=== PATIENT | male | born 1955 | race Caucasian/White ===

== ENCOUNTER → 2017-08-25 18:06 | Outpatient (CLI) | payer BC, SELFPAY ==
--- NOTE | 2017-08-25 | IMM_PTH ---
PATIENT: BASSEM EVANS LOC: [facility] U#:[id number] AGE/SX: 70/M ROOM: RE08/25/[address]: Dr. Rohit Estrada MD : 1955 BED: DIS: SPEC #: [id number] RECD: 08/27/17 11:25 STATUS: CHASEShe REQ #: [id number] JANNETH: 08/25/17 00:[address]: Rohit Estrada DEPT: IMMUNOHISTOCHEMISTRY RECD BY: Radha Bueno ENTERED: 08/27/17 11:26 SP TYPE: IMMUNO OTHR DR: Dr. Eric Rosas MD Tissues: D - PROSTATE LEFT Procedures: P40 (add) 34BE12 (initial) PHYSICIAN & INSTITUTION [place] [id number] SPECIMEN INFORMATION: Tissue Source: D - Left prostate, apex, core biopsy Clinical Info: Elevated PSA Specimen Number: [id number] CPT code: 33338, 42885 METHODOLOGY: Deparaffinized sections of prefer/formalin-fixed tissue or PAP/DQ stained slides are incubated with monoclonal/polyclonal antibodies/oligonucleotide probes. Localization is made via biotin free immunoperoxidase method. Appropriate controls are performed and reacted as expected. Results on target cell population are indicated in the following table: RESULTS: ANTIBODY / CLONE RESULT Block D P40 (BC28) negative 34BE12 (34BE12) negative These tests were developed and their performance characteristics determined by [facility]. They may not have been cleared or approved by the U.S. Food and Drug Administration. The FDA has determined that such clearance or approval is not necessary. INTERPRETATION: D. Left prostate, apex, core biopsy: Adenocarcinoma. SJ:ben 08/28/17
--- NOTE | 2017-08-25 15:30 | PROSBIL_PTH ---
PATIENT: BASSEM EVANS LOC: [facility] U#:[id number] AGE/SX: 70/M ROOM: RE08/25/[address]: Dr. Rohit Estrada MD : 1955 BED: DIS: SPEC #: [id number] RECD: 08/25/17 18:09 STATUS: ZORAN NAHEED #: [id number] JANNETH: 08/25/17 15:[address]: Rohit Estrada DEPT: SURGICAL PATHOLOGY RECD BY: Travis Beard ENTERED: 08/26/17 12:08 SP TYPE: PROST BX CÉSAR DR: Dr. Eric Rosas MD Tissues: A - PROSTATE RIGHT B - PROSTATE RIGHT C - PROSTATE RIGHT D - PROSTATE LEFT E - PROSTATE LEFT F - PROSTATE LEFT Procedures: PROSTATE BX HEADER OPERATION: Prostate biopsy PRE-OP DIAGNOSIS: Elevated PSA TISSUE SUBMITTED: A - Right apex, B - Right mid, C - Right base, D - Left apex, E - Left mid, F - Left base MICROSCOPIC DIAGNOSIS A. Right prostate, apex, core biopsy: Prostatic tissue, negative for malignancy. Focal mild chronic inflammation. B. Right prostate, mid, core biopsy: Prostatic tissue, negative for malignancy. C. Right prostate, base, core biopsy: Focal high-grade prostatic intraepithelial neoplasia (HGPIN). D. Left prostate, apex, core biopsy: Prostatic adenocarcinoma: [place] grade: 3+4=7 Number of cores involved: 2 out of 2 Proportion of tissue involved: ~20% Perineural invasion: Present Greatest tumor length: 0.3 cm E. Left prostate, mid, core biopsy: Prostatic adenocarcinoma: [place] grade: 3+4=7 Number of cores involved: 2 out of 2 Proportion of tissue involved: ~60% Perineural invasion: Present Greatest tumor length: 0.7 cm F. Left prostate, base, core biopsy: Prostatic adenocarcinoma: [place] grade: 4+3=7 Number of cores involved: 2 out of 2 Proportion of tissue involved: ~70% Perineural invasion: Present Greatest tumor length: 0.9 cm NATALEE:ben 08/27/17 COMMENT D. Immunohistochemistry ([id number]) supports the above diagnosis. Case has been reviewed in consultation with Dr. Rasheed who concurs with the above diagnosis. IDC:AM MICROSCOPIC DESCRIPTION Slides are reviewed. GROSS DESCRIPTION A - Received is one container designated prostate, right apex. The specimen consists of three elongated fragments of light delgado-white soft tissue measuring 0.3 to 1.2 cm in length and 0.1 cm in diameter. The specimen is totally submitted in one cassette. B - Received is one container designated prostate, right mid. The specimen consists of two elongated fragments of light delgado-white soft tissue measuring 0.5 and 1.2 cm in length and 0.1 cm in diameter. The specimen is totally submitted in one cassette. C - Received is one container designated prostate, right base. The specimen consists of two elongated fragments of light delgado-white soft tissue each measuring 1 cm in length and 0.1 cm in diameter. The specimen is totally submitted in one cassette. D - Received is one container designated prostate, left apex. The specimen consists of two elongated fragments of light delgado-white soft tissue each measuring 1 cm in length and 0.1 cm in diameter. The specimen is totally submitted in one cassette. E - Received is one container designated prostate, left mid. The specimen consists of two elongated fragments of light delgado-white soft tissue each measuring 1.2 cm in length and 0.1 cm in diameter. The specimen is totally submitted in one cassette. F - Received is one container designated prostate, left base. The specimen consists of two elongated fragments of light delgado-white soft tissue each measuring 1.4 cm in length and 0.1 cm in diameter. The specimen is totally submitted in one cassette. / NATALEE:ben 08/26/17 TC:0 [facility]: [id number] x6
== END ==
PROVIDERS: Family Provider Family Medicine; PCP Family Medicine; Visit Provider Urology
DX: R97.20 Elevated prostate specific antigen [PSA] (principal)
CPT/HCPCS: 88305; 88341; 88342; G0416

== ENCOUNTER → 2017-09-09 10:05 | Outpatient (CLI) | payer BC, SELFPAY ==
--- NOTE | 2017-09-09 10:09 | NM_ITS ---
CLINICAL: 62-year-old male with reported history of carcinoma of the prostate. WHOLE BODY 99m Tc MDP RADIONUCLIDE BONE SCINTIGRAPHY COMPARISON: CT of the abdomen-pelvis report 09/09/2017 FINDINGS: Following the intravenous administration of 25.5 mCi of 99m Tc MDP, whole body bone images reveal: 1. Increased radiopharmaceutical concentration is identified in the acromioclavicular and sternoclavicular compartments of both shoulders, fifth lumbar vertebra posteriorly on the left and right, left sacroiliac joint, bilateral wrists and hands, the patellofemoral compartments of both knees, the right hip involving the superior acetabulum. 2. Asymmetric increased uptake is noted in the left posterior ischium. 3. The remaining skeletal structures are scintigraphically unremarkable with normal-appearing renal images and urinary bladder activity identified. Increase in uptake is defined in the inter-orbital aspect of the calvarium most consistent with periostitis. NM/Bone Scan Whole Body IMPRESSION: 1. The increased radiopharmaceutical concentration identified in the bilateral shoulders, fifth lumbar vertebra, left sacroiliac joint, bilateral wrist articulations, right-left hands, knees bilaterally, the right hip is most consistent with degenerative arthritis. 2. Facilitated tracer concentration noted in the left posterior ischium is most consistent with periostitis. Plain film radiography correlation may be of benefit in the setting of known prostate carcinoma. Electronically Signed: Ralph Garcia DO at 11:38 EST Tel , Service support ,
--- NOTE | 2017-09-09 13:50 | CT_ITS ---
STUDY: CT ABDOMEN AND PELVIS WITH CONTRAST REASON FOR EXAM: Male, 62 years old. Prostate cancer. Study performed for staging RADIATION DOSAGE (If Supplied By Facility): CTDIvol = ( 16.78 ) mGy, DLP = ( 1319.30 ) mGycm TECHNIQUE: Transaxial images were obtained from the dome of the diaphragm to the symphysis pubis without oral contrast. 100CC ml of Isovue 300 contrast was administered. Sagittal and coronal images were reconstructed. Individualized dose optimization techniques were used for this CT. COMPARISON: April 29, 2017 8 years. . FINDINGS: The visualized lung bases are unremarkable. The visualized portions of the heart are within normal limits. Normal liver. Normal gallbladder and extrahepatic biliary system. Normal spleen. Normal pancreas. Normal bilateral adrenal glands. Bilateral renal cysts are noted largest is in the right kidney measures 7.7 x 7.0 cm is stable since the previous study it contains a linear calcification and is consistent with benign cyst. Normal visualized stomach. Normal small intestine. Normal colon. The appendix is visualized and appears normal. Normal abdominal aorta. Normal inferior vena cava. Normal retroperitoneum. Normal urinary bladder. Normal abdominal wall. There are diffuse degenerative changes of the visualized lumbar spine. CT/Abdomen/Pelvis WITH Contrast IMPRESSION: Cholelithiasis. Bilateral renal cysts are noted largest is in the right kidney measures 7.7 x 7.0 cm is stable since the previous study it contains a linear calcification and is consistent with benign cyst. There is no evidence of metastatic lesions in the abdomen or the pelvis. Electronically Signed: Marti Ramírez MD at 7:12 EST Tel , Service support ,
== END ==
PROVIDERS: Family Provider Family Medicine; PCP Family Medicine; Visit Provider Urology
DX: C61 Malignant neoplasm of prostate (principal)
CPT/HCPCS: 74177; 78306; Q9967

== ENCOUNTER → 2017-10-23 13:17 | Outpatient (CLI) | payer BC, SELFPAY ==
[2017-10-22 15:52] LABS: Absolute Lymphocyte Count 1.73 X10^3/ul (0.83-4.51); Absolute Neutrophil Count 3.6 X10^3/uL (2.0-7.7); Basophil# 0.02 X10^3/uL; Basophil% 0.3 % (0-1); Eosinophil# 0.29 X10^3/uL; Eosinophils% 4.5 % (0-5); Hematocrit 43.4 % (40-54); Hemoglobin 14.8 g/dl (13.0-16.5); Lymphocyte # 1.73 X10^3/ul (4.0); Lymphocyte % 27.1 % (19-41); Mean Corp Hgb Conc 34.1 g/gl (32-36); Mean Corpuscular Hgb 29.2 pg (27.0-32.0); Mean Corpuscular Volume 85.6 fL (80-94); Mean Platelet Vol. 10.7 fl (6.2-12.0); Monocyte# 0.79 X10^3/uL; Monocyte% 12.4 % (0-10); Neutrophil # 3.55 X10^3/uL (2.7-7.7); Neutrophil % 55.5 % (47-70); Platelet Count 191 K/mm3 (150-450); RBC Distribution Width CV 12.7 % (11.6-14.6); RBC Distribution Width SD 39.3 fl (35.1-43.9); Red Blood Count 5.07 M/mm3 (4.6-6.2); White Blood Count 6.4 K/mm3 (4.4-11.0)
[2017-10-22 15:54] LABS: POSITIVE COUNT NO; POSITIVE DIFFERENTIAL NO; POSITIVE MORPHOLOGY NO
[2017-10-22 16:24] LABS: Creatinine, Serum 1.05 mg/dL (0.70-1.30); EST Glomerular Filtration Rate 76 mL/min (>60); Est Glom Filt Rate - Afr Amer 92 mL/min (>60); PSA,Total- Diagnostic 1.87 ng/mL (0.0-4.0)
--- NOTE | 2017-10-23 13:19 | CT_ITS ---
STUDY: CT PELVIS WITH CONTRAST REASON FOR EXAM: Male, 62 years old. Prostate carcinoma. Radiation therapy planning. RADIATION DOSAGE (If Supplied By Facility): CTDIvol = ( 24.62 ) mGy, DLP = ( 887.24 ) mGycm TECHNIQUE: Transaxial imaging of the pelvis was performed without oral contrast. 100CC ml of Isovue 300 contrast was administered intravenously. No sagittal/coronal reconstructions provided. Radiation therapy technique. Individualized dose optimization techniques were used for this CT. COMPARISON: No prior CT pelvis with radiation therapy technique imaging available. Correlation CT abdomen/pelvis 09/09/2017. FINDINGS: Incompletely seen round smooth margin low-attenuation lesion is seen in the right lower quadrant of the abdomen posteriorly, consistent with a renal cyst, seen with prior CT study 09/09/2017 which measures up to 7.6 cm diameter with central Hounsfield units 10.1 consistent with a simple cyst. Normal urinary bladder noted, nearly completely filled with IV contrast. No dilatation visualized distal ureter is noted. Seminal vesicles appear symmetric and within normal limits in size. Prostate is approximate in 4.3 x 3.9 cm and mildly indents the posterior inferior bladder in the midline and is partially secured by metal artifact from fiduciary markers. Normal visualized small intestine. Normal visualized colon. The appendix is identified and shows normal caliber without thickening. There is no pelvic fluid. There is no pelvic lymphadenopathy or mass lesion identified. Iodinated contrast moderately dilates the penile urethra especially at the base. 3 gold fiduciary markers are noted within the prostate for radiation therapy planning. Normal visualized pelvic arteries. Moderate calcified distal abdominal aorta and distal branches noted. Normal abdominal wall without ventral/adrenal hernia noted. Visualized soft tissues show small lipoma anterior to the right proximal femur approximate 2.0 x 4.0 cm. No change visualized osseous structures without finding of lytic/blastic lesion noted. Mild metal artifact noted from penile clamp. No filling defect within the penile urethra identified. CT/CT Pelvis W/CONT Therapy IMPRESSION: CT pelvis for radiation therapy planning of prostate carcinoma as described. No CT finding of prostate osseous metastasis is identified. Electronically Signed: Price Poli, at 8:09 EDT Tel , Service support ,
== END ==
PROVIDERS: Family Provider Family Medicine; PCP Family Medicine; Visit Provider Radiology Radiation Oncology
DX: Z01.818 Encounter for other preprocedural examination (principal); C61 Malignant neoplasm of prostate
CPT/HCPCS: 36415; 51600; 72193; 82565; 84153; 85025; Q9967

== ENCOUNTER → 2017-11-03 16:02 | Outpatient (CLI) | payer BC, SELFPAY ==
--- NOTE | 2017-11-03 16:10 | US_ITS ---
STUDY: SCROTUM ULTRASOUND REASON FOR EXAM: Male, 62 years old. Right testicular mass and swelling. Patient is on antibiotics and says that the lump has gone down. TECHNIQUE: Ultrasound evaluation of the scrotum was performed with color Doppler and static davenport-scale imaging. COMPARISON: None. FINDINGS: RIGHT TESTICLE INTRATESTICULAR: There is a normal size of the right testicle. The right testicle measures 2.8 x 2.2 x 1.5 cm. There is a homogenous echotexture. There is normal arterial and normal venous vascularity. There is no demonstrated right testicular mass or cyst. EXTRATESTICULAR: The epididymal head is normal in size. The epididymis head measures 0.6 cm. There is thickening and heterogeneity of the epididymal tail, which corresponds with the area of palpable lump. There is normal vascularity of the epididymis. There is no demonstrated epididymal cystic structure. There is no demonstrated hydrocele. There is no demonstrated varicocele. There is no demonstrated extratesticular mass or cyst. LEFT TESTICLE INTRATESTICULAR: There is a normal size of the left testicle. The left testicle measures 2.6 x 2.0 x 1.4 cm. There are a small number of microcalcifications in the left testicle. Otherwise there is a homogenous echotexture. There is normal arterial and normal venous vascularity. There is no demonstrated left testicular mass or cyst. EXTRATESTICULAR: The epididymis is normal in size. The epididymis head measures 0.5 cm. There is normal vascularity of the epididymis. There is no demonstrated epididymal cystic structure. There is no demonstrated hydrocele. There is no demonstrated varicocele. There is no demonstrated extratesticular mass or cyst. US/Testicular with Arterial Flow IMPRESSION: Mild microlithiasis of the left testicle. Otherwise, normal testes with no evidence for mass, torsion, or hyperemia. Thickening and heterogeneity of the right epididymal tail may represent epididymitis. Electronically Signed: Michael Castillo MD at 5:21 EDT , Service support ,
== END ==
PROVIDERS: Family Provider Family Medicine; PCP Family Medicine; Visit Provider Urology
DX: N50.9 Disorder of male genital organs, unspecified (principal)
CPT/HCPCS: 76870; 93976

== ENCOUNTER → 2017-11-25 16:30 | Outpatient (CLI) | payer BC, SELFPAY ==
[2017-11-25 17:25] LABS: Absolute Neutrophil Count 2.9 X10^3/uL (2.0-7.7); Basophil# 0.02 X10^3/uL; Basophil% 0.4 % (0-1); Eosinophil# 0.23 X10^3/uL; Hematocrit 39.8 % (40-54); Hemoglobin 13.6 g/dl (13.0-16.5); Lymphocyte % 15.3 % (19-41); Mean Corp Hgb Conc 34.2 g/gl (32-36); Mean Corpuscular Hgb 29.2 pg (27.0-32.0); Mean Corpuscular Volume 85.6 fL (80-94); Mean Platelet Vol. 10.4 fl (6.2-12.0); Monocyte# 0.71 X10^3/uL; Monocyte% 15.5 % (0-10); Neutrophil # 2.92 X10^3/uL (2.7-7.7); Neutrophil % 63.6 % (47-70); Platelet Count 138 K/mm3 (150-450); RBC Distribution Width CV 12.8 % (11.6-14.6); RBC Distribution Width SD 38.6 fl (35.1-43.9); Red Blood Count 4.65 M/mm3 (4.6-6.2); White Blood Count 4.6 K/mm3 (4.4-11.0)
[2017-11-25 17:49] LABS: POSITIVE COUNT NO; POSITIVE DIFFERENTIAL NO; POSITIVE MORPHOLOGY NO
== END ==
PROVIDERS: Family Provider Family Medicine; PCP Family Medicine; Visit Provider Radiology Radiation Oncology
DX: C61 Malignant neoplasm of prostate (principal)
CPT/HCPCS: 36415; 85025

== ENCOUNTER → 2017-12-15 16:22 | Outpatient (CLI) | payer BC, SELFPAY ==
[2017-12-15 17:14] LABS: Absolute Lymphocyte Count 1.03 X10^3/ul (0.83-4.51); Absolute Neutrophil Count 2.5 X10^3/uL (2.0-7.7); Basophil# 0.02 X10^3/uL; Basophil% 0.5 % (0-1); Eosinophil# 0.29 X10^3/uL; Eosinophils% 6.7 % (0-5); Lymphocyte # 1.03 X10^3/ul (4.0); Mean Corp Hgb Conc 33.3 g/gl (32-36); Mean Corpuscular Hgb 28.8 pg (27.0-32.0); Mean Corpuscular Volume 86.3 fL (80-94); Mean Platelet Vol. 9.9 fl (6.2-12.0); Monocyte# 0.43 X10^3/uL; Neutrophil # 2.52 X10^3/uL (2.7-7.7); Neutrophil % 58.6 % (47-70); POSITIVE COUNT NO; POSITIVE DIFFERENTIAL NO; POSITIVE MORPHOLOGY NO; Platelet Count 148 K/mm3 (150-450); RBC Distribution Width SD 43.7 fl (35.1-43.9); Red Blood Count 4.52 M/mm3 (4.6-6.2); White Blood Count 4.3 K/mm3 (4.4-11.0)
== END ==
PROVIDERS: Family Provider Family Medicine; PCP Family Medicine; Visit Provider Radiology Radiation Oncology
DX: C61 Malignant neoplasm of prostate (principal)
CPT/HCPCS: 36415; 85025

== ENCOUNTER → 2018-06-16 11:41 | Outpatient (CLI) | payer BC, SELFPAY ==
[2018-06-16 13:20] LABS: PSA,Total- Diagnostic < 0.01 ng/mL (0.0-4.0)
== END ==
PROVIDERS: Family Provider Family Medicine; PCP Family Medicine; Referring Provider Urology; Visit Provider Urology
DX: C61 Malignant neoplasm of prostate (principal)
CPT/HCPCS: 36415; 84153

== ENCOUNTER → 2018-11-02 | Outpatient (CLI) | payer BC, SELFPAY ==
[2018-04-09 15:52] VITALS: BMI 34.7
--- NOTE | 2018-11-02 | CYSPIN_PTH ---
PATIENT: BASSEM EVANS LOC: [facility] U#:[id number] AGE/SX: 63/M ROOM: RE11/02/[address]: Dr. Rohit Estrada MD : 1955 BED: DIS: 11/02/2018 SPEC #: [id number] RECD: 11/03/18 11:26 STATUS: ZORAN REGlendy #: [id number] JANNETH: 11/02/18 00:[address]: Rohit Estrada DEPT: CYTOLOGY RECD BY: Sharad Weiner ENTERED: 11/03/18 11:26 SP TYPE: CYSPIN FL OTHR DR: Dr. Eric Rosas MD Tissues: Urine Procedures: Pap Stain (control) Special Stain Group II Cytospin Fluid HEADER OPERATION: Not noted PRE-OP DIAGNOSIS: Hematuria TISSUE SUBMITTED: Urine for cytology DIAGNOSIS CYTOLOGY Urine for cytology (cytospin): A few atypical urothelial cells noted, suspicious for malignancy. Bloody specimen. SJ:ben 11/04/18 COMMENT Clinical correlation and appropriate follow up are necessary. Case has been reviewed in consultation with Dr. Rasheed who concurs with the above diagnosis. IDC:AM CYTOLOGY STUDY Slides are reviewed. CYTOLOGY GROSS Received is 35 ml of cloudy red fluid labeled with the patient's name and and designated per the requisition as urine. Submitted for cytology preparation. / 11/03/18 TC:5 CPT: 63984
[2018-11-02 17:13] LABS: Cytology, Body Fluid / CSF SEE PATHOLOGY REPORT
== END | disposition home or self-care (01) ==
LOC: LABSPEC 16:59
PROVIDERS: Family Provider Family Medicine; PCP Family Medicine; Referring Provider Urology; Visit Provider Urology
DX: R31.9 Hematuria, unspecified (principal)
CPT/HCPCS: 88108; 88313

== ENCOUNTER → 2018-11-09 16:45 | Outpatient (CLI) | payer BC, SELFPAY ==
[2018-04-09 15:52] VITALS: BMI 34.7
--- NOTE | 2018-11-09 16:52 | CT_ITS ---
STUDY: CT ABDOMEN AND PELVIS WITHOUT CONTRAST REASON FOR EXAM: Male, 63 years old. Hematuria times one day RADIATION DOSAGE (If Supplied By Facility): CTDIvol = ( 18.74 ) mGy, DLP = ( 959.68 ) mGycm TECHNIQUE: Transaxial images were obtained from the dome of the diaphragm to the symphysis pubis without oral contrast, and without intravenous contrast. Sagittal and coronal images were reconstructed. Individualized dose optimization techniques were used for this CT. COMPARISON: 09/09/17 FINDINGS: The visualized lung bases are unremarkable. The visualized portions of the heart are within normal limits. There is decreased attenuation of the liver consistent with steatosis. There are multiple gallstones. Normal spleen. Normal pancreas. Normal bilateral adrenal glands. No obstructive uropathy, simple cysts are noted in both kidneys. Lower pole cyst in the right kidney measures 7 cm. Normal visualized stomach. Normal small intestine. Normal colon. The appendix is visualized and appears normal. Appendix best seen on coronal recon image 51. There is diffuse atherosclerotic calcification of the abdominal aorta, without a demonstrated aneurysm. Normal inferior vena cava. Normal retroperitoneum. Normal urinary bladder. Surgical clips noted around the prostate. Normal abdominal wall. There are diffuse degenerative changes of the visualized lumbar spine, and pelvis. CT/Abdomen/Pelvis without Cont IMPRESSION: No obstructive uropathy, stable bilateral renal cysts Bladder distends normally without evidence of filling defect, surgical clips noted around the prostate. Fatty liver Cholelithiasis, no sonographic evidence of acute cholecystitis Normal appendix visualized Degenerative bony changes Electronically Signed: Juni Culp MD at 19:18 EDT , Service support ,
== END ==
PROVIDERS: Family Provider Family Medicine; PCP Family Medicine; Referring Provider Urology; Visit Provider Urology
DX: R31.0 Gross hematuria (principal); Z85.46 Personal history of malignant neoplasm of prostate; Z87.442 Personal history of urinary calculi
CPT/HCPCS: 74176

== ENCOUNTER → 2019-04-28 08:31 | Outpatient (CLI) | payer BC, SELFPAY ==
[2019-04-13 13:50] VITALS: BMI 34.7
[2019-04-28 10:06] LABS: AST(SGOT) 19 U/L (15-37); Alanine Aminotransfer ALT/SGPT 39 U/L (16-61); Albumin, Serum 3.6 g/dL (3.2-5.0); Alkaline Phosphatase 55 U/L (45-117); Bilirubin, Direct 0.21 mg/dL (0.00-0.30); Cholesterol 129 mg/dL (200); Globulin 3.5 g/dL (2.2-4.2); High Density Lipoprotein 44 mg/dL; PSA,Total- Diagnostic 0.19 ng/mL (0.0-4.0); Protein, Total 7.1 g/dL (6.4-8.2); Triglycerides 146 mg/dL; Very Low Density Lipoprotein 29 mg/dL (5-40)
== END ==
PROVIDERS: Internal Medicine Cardiovascular Disease; Family Provider Family Medicine; PCP Family Medicine; Referring Provider Urology; Visit Provider Urology
DX: E78.5 Hyperlipidemia, unspecified (principal); C61 Malignant neoplasm of prostate
CPT/HCPCS: 36415; 80061; 80076; 84153

== ENCOUNTER → 2020-01-10 11:36 | Outpatient (CLI) | payer BC, SELFPAY ==
[2020-01-10 13:02] LABS: PSA,Total- Diagnostic 0.19 ng/mL (0.0-4.0)
== END ==
PROVIDERS: Referring Provider Urology; Visit Provider Urology
DX: C61 Malignant neoplasm of prostate (principal)
CPT/HCPCS: 36415; 84153

== ENCOUNTER → 2020-07-05 09:24 | Outpatient (CLI) | payer BC, SELFPAY ==
[2019-04-13 13:50] VITALS: BMI 34.7
[2020-07-05 10:53] LABS: PSA,Total- Diagnostic 0.29 ng/mL (0.0-4.0)
== END ==
PROVIDERS: Referring Provider Urology; Visit Provider Urology
DX: C61 Malignant neoplasm of prostate (principal)
CPT/HCPCS: 36415; 84153

== ENCOUNTER → 2020-07-14 15:21 | Outpatient (CLI) | payer BC, SELFPAY ==
[2020-07-14 11:45] VITALS: BMI 33.7
== END ==
PROVIDERS: Visit Provider Physician Assistant Surgical
DX: R68.89 Other general symptoms and signs (principal)
CPT/HCPCS: 87635; U0003

== ENCOUNTER 2020-07-21 06:21 | Emergency (ER) | payer BC, SELFPAY ==
[2020-07-14 11:45] VITALS: BMI 33.7
[2020-07-21 06:22] VITALS: BP 194/74; PULSE 57; RESP 18; TEMP 35.7; O2SAT 100; BMI 34.4
--- NOTE | 2020-07-21 06:31 | CT_ITS ---
STUDY: CT ABDOMEN AND PELVIS WITHOUT CONTRAST REASON FOR EXAM: Male, 65 years old. LEFT FLANK PAIN, HX PROSTATE CANCER RADIATION DOSAGE (If Supplied By Facility): CTDIvol = ( 16.72 ) mGy, DLP = ( 1019.29 ) mGycm TECHNIQUE: Transaxial 2.5 mm images were obtained from the dome of the diaphragm to the symphysis pubis without oral contrast, and without intravenous contrast. Sagittal and coronal images were reconstructed. This examination is limited for the evaluation of gastrointestinal, solid organs and vascular structures due to the lack of intravenous and oral contrast. Individualized dose optimization techniques were used for this CT. COMPARISON: CT abdomen and pelvis 11/09/2018. 09/09/2017. CT pelvis 10/23/2017. FINDINGS: The visualized lung bases are unremarkable. There is coronary artery calcification. There is stable decreased attenuation of the liver consistent with steatosis. There are stable multiple gallstones. Normal spleen. Normal pancreas. Normal bilateral adrenal glands. There is no right obstructive uropathy, right renal or ureteral calculi. There is left periureteral stranding and a punctate calculus at the left UVJ. There is minimal left hydronephrosis. There are bilateral stable renal cysts, largest in the inferior renal pole measures 8 cm, previously 7.8 cm, stable incompletely calcified septation. Normal visualized stomach. Normal small intestine. Normal colon. The appendix is visualized and appears normal. There is stable atherosclerosis of the abdominal aorta, greater branches and pelvic arteries without aneurysm or leak. Normal inferior vena cava. Normal retroperitoneum. Normal urinary bladder. There are stable prostatic metallic clips. There is a stable right-sided inguinal hernia containing adipose tissue. There are stable diffuse degenerative changes of the visualized lumbar spine. CT/Abdomen/Pelvis without Cont IMPRESSION: Punctate calculus at the left UVJ with periureteral stranding, minimal left hydronephrosis. Bilateral stable renal cysts, hepatic steatosis, cholelithiasis, arteriosclerosis, degenerative changes, postsurgical changes of the prostate. Electronically Signed: Diane Jackson MD at 7:36 EST , Service support ,
--- NOTE | 2020-07-21 06:31 | ED.VIS.GI ---
History of Present Illness Chief Complaint: Flank Pain Informant: Patient - Abdominal Pain/Flank Pain Onset: Hours - 6 Context: Sudden Onset Timing: Continuous, Waxes and wanes Quality: Aching Location: Left Flank - in back; no abd pain Current Severity: 8/10 Maximum Severity: 10/10 Worsened by: Nothing Relieved by: Nothing - Nausea/Vomiting/Emesis GI Symptom: Negative for: Nausea, Vomiting - Diarrhea/Melena/Hematochezia GI Symptom: Negative for: Diarrhea, Melena, Hematochezia Associated Symptoms: Negative for: Dysuria, Frequency, Hematuria, Urgency Narrative: Sudden onset left flank pain has not radiated around to his groin or anywhere else. Feels similar to a kidney stone he had in the past, he only had 1 and he passed it and did not require any procedures or surgery to do so. He had prostate cancer and surgery for that but no other abdominal surgeries. No LOC or presyncopal sx today. No known hx of AAA. Prior similar symptoms: Yes - With prior kidney stone remotely Recent Illness/Hospitalization: No - Past Medical History (1) History of prostate cancer Status: Resolved (2) Atherosclerosis of coronary artery of [place] heart with angina pectoris Status: Chronic Comment: PCI-JUSTYN-Mid RCA w/ 4.0 x 23 mm Promus 11/2009 (3) Essential (primary) hypertension Status: Chronic (4) HLD (hyperlipidemia) Status: Chronic (5) History of coronary artery stent placement Status: Resolved Comment: PCI-JUSTYN-Mid RCA w/ 4.0 x 23 mm Promus 11/2009 Past Medical History - Allergies and Home Meds Allergies/Adverse Reactions: Allergies anxiety med Allergy (Uncoded 07/14/20 11:47) Unknown Primary Care Physician: Rohit Estrada MD [STAFF PHYSICIAN] - 1 Week if not improving Doctors: Natalie - Urology Surgical History: - - prostate Smoking Status: Former smoker Review of Systems General: Denies: Chills, Fever, Sweats Eyes: Denies: Visual changes - bilaterally, Diplopia ENT: Denies: Rhinorrhea, Sore throat Cardiovascular: Denies: Chest pain, Palpitations Respiratory: Denies: Dyspnea, Cough, Dyspnea on exertion Gastrointestinal: Denies: Abdominal pain, Nausea, Vomiting, Diarrhea, Melena, Hematochezia Genitourinary: Denies: Dysuria, Hematuria, Frequency Musculoskeletal: Reports: Back pain. Denies: Myalgias, Extremity Pain Skin: Denies: Rash, Wounds Neurological: Denies: Headache, Weakness, Numbness Physical Exam Vital Signs/Narrative: Vital Signs Temp Pulse Resp BP Pulse Ox 07/21/20 06:22 96.2 F L 57 L 18 194/74 H 100 Inital Vital Signs reviewed: Yes General: Well nourished, Well developed, Obese, No Acute Distress Head: Normocephalic, Atraumatic Eyes: Perrl, EOMI ENT: Moist mucous membranes, No rhinorrhea Neck: Supple, Nontender Cardiovascular: Regular rate, Regular rhythm, No murmurs Respiratory: No distress, CTA bilaterally, Chest nontender Abdomen: Soft, Nontender, Nondistended, Normal bowel sounds. Negative for: Pulsatile mass Back: Normal Inspection, CVA tenderness - left only Extremities: Nontender, No edema Skin: Normal color, No rash, No Trauma Neurological: Alert, Oriented x3, Cranial nerves II-XII grossly intact, Normal Strength, Normal Sensation, Normal Gait Psychological: Normal affect, Normal Mood Diagnostic/Tx/Re-eval - Medical Decision Making Kidney stone suspected, given his age, one must consider AAA rupture. Urinalysis pending. CT obtained, official report is pending but it does not appear to show a AAA. It does, rather, show what appears to be a punctate left UVJ stone with mild hydro-, consistent with a kidney stone causing his symptoms. He was given morphine and Zofran IV for his symptoms, which were significantly improved. Anticipate discharge home with expectant management if urine shows no infection, prescription for analgesics, and urologic follow-up if he does not pass the stone within a week or so but is able to control his symptoms. We discussed reasons to return. ED Disposition - Plan for ED Patient: Disposition: Home or Assisted Living Diagnosis: Ureterolithiasis, Renal colic on left side Instructions: ED Kidney Stone w/ Colic Prescriptions: Oxycodone HCl/Acetaminophen [Percocet 5/325] 1 tab PO Q6H PRN PRN 3 Days #12 tab PRN Reason: Pain Prescription Printed Referrals: Rohit Estrada MD [STAFF PHYSICIAN] - 1 Week if not improving
[2020-07-21] MEDS: Morphine 4 MG/ML Syringe IV (06:40)
[2020-07-21] MEDS: Ondansetron 4 MG/2 ML Vial IV (06:40)
[2020-07-21 07:27] VITALS: BP 180/91; PULSE 90; RESP 16; O2SAT 99
[2020-07-21 08:04] LABS: Color, Urine Straw (Yellow); Glucose, Dipstick Normal (Normal); Ketone-Dipstick Negative (Negative); Leukocyte Esterase-Dipstick Negative /ul (Negative); Nitrite-Dipstick Negative (Negative); Occult Blood-Urine 250 /ul (Negative); Protein-Dipstick 15 mg/dl (Negative); Urine Bilirubin Dipstick Negative (Negative); Urine Clarity Clear (Clear); Urine Urobilinogen Normal (Normal)
[2020-07-21 08:14] LABS: Red Blood Cells-Urine 10-25 SEEN /hpf (0-5); White Blood Cells 0-5 SEEN /hpf (0-5)
[2020-07-21 08:15] LABS: Bacteria RARE /hpf (None Seen); Mucous, Urine 1+ /hpf (<or=2+); Renal Epithelial Cells 0-5 SEEN /hpf (0-5); Squamous Epithelial Cells - UA 0-5 SEEN /hpf (0-5)
[2020-07-21 08:30] VITALS: BP 162/89; PULSE 89; RESP 16; O2SAT 99
== END 2020-07-21 08:31 | disposition home or self-care (01) ==
LOC: ED 06:56
PROVIDERS: Emergency Provider Emergency Medicine
DX: R10.9 Unspecified abdominal pain (principal); N13.2 Hydronephrosis with renal and ureteral calculous obstruction; E78.5 Hyperlipidemia, unspecified; I10 Essential (primary) hypertension; I25.10 Atherosclerotic heart disease of native coronary artery without angina pectoris; Z85.46 Personal history of malignant neoplasm of prostate; Z87.442 Personal history of urinary calculi; Z87.891 Personal history of nicotine dependence; Z95.5 Presence of coronary angioplasty implant and graft
CPT/HCPCS: 74176; 81001; 96374; 96375; 99284; A4216; J2405

== ENCOUNTER → 2020-09-15 08:00 | Outpatient (CLI) | payer BC, SELFPAY ==
--- NOTE | 2020-09-15 08:12 | US_ITS ---
STUDY: ABDOMINAL ULTRASOUND - RIGHT UPPER QUADRANT REASON FOR VISIT: Male, 65 years old RUQ PAIN X 6 WEEKS TECHNIQUE: Ultrasound evaluation of the right upper quadrant was performed with real-time and static davenport-scale imaging. TECHNICAL QUALITY: Adequate. COMPARISON: None. FINDINGS: Liver: The liver measures 16.4 cm. There is increased echogenicity consistent with fatty infiltration. The bile ducts are within normal limits. There is hepatic color flow. The direction of portal flow is hepatopetal. There is no demonstrated mass lesion. Gallbladder: Normal distended gallbladder. The gallbladder wall measures 2.4 mm. There is a negative sonographic Mercado''s sign. There is no pericholecystic fluid. There are multiple echogenic structures within the gallbladder, consistent with multiple gallstones. Common Bile Duct (C.B.D.): The common bile duct measures 3.3 mm. Pancreas: Normal size of the head, body and tail of the pancreas. There is increased echogenicity of the pancreas. There is no demonstrated pancreatic mass or cyst. Right Kidney: Normal size of the right kidney. The right kidney measures 11.7 cm x 5.8 cm x 6.5 cm. Normal renal cortex. The right cortex measures 2 cm. 2 renal cysts are seen. The largest measures 7.3 cm x 8.1 cm x 6.6 cm. There is no right hydronephrosis. US/Abdomen Limited IMPRESSION: Fatty infiltration of the liver. Multiple gallstones. Right renal cysts. The larger measures 7.3 cm x 8.1 cm x 6.6 cm. Electronically Signed: Ruddy Burroughs MD at 11:03 EST , Service support ,
[2020-09-15 08:38] LABS: Absolute Lymphocyte Count 0.75 X10^3/uL (0.83-4.51); Absolute Neutrophil Count 2.8 X10^3/uL (2.0-7.7); Basophil# 0.03 X10^3/uL; Basophil% 0.7 % (0-1); Eosinophil# 0.19 X10^3/uL; Eosinophils% 4.3 % (0-5); Hematocrit 46.7 % (40-54); Hemoglobin 15.4 g/dL (13.0-16.5); Lymphocyte # 0.75 X10^3/ul (4.0); Mean Corpuscular Hgb 29.1 pg (27.0-32.0); Mean Corpuscular Volume 88.1 fL (80-94); Mean Platelet Vol. 10.2 fl (6.2-12.0); Monocyte# 0.66 X10^3/uL; NRBC Flagged by Analyzer 0 % (0-5); Neutrophil # 2.75 X10^3/uL (2.7-7.7); Neutrophil % 62.3 % (47-70); Platelet Count 198 K/mm3 (150-450); RBC Distribution Width CV 12.9 % (11.6-14.6); RBC Distribution Width SD 41.8 fl (35.1-43.9); White Blood Count 4.4 K/mm3 (4.4-11.0)
[2020-09-15 09:16] LABS: ALB/GLOB Ratio 1.1 RATIO (0.9-2.4); AST(SGOT) 27 U/L (15-37); Alanine Aminotransfer ALT/SGPT 51 U/L (16-61); Albumin, Serum 3.9 g/dL (3.2-5.0); Alkaline Phosphatase 49 U/L (45-117); Anion Gap 5 (5-15); BUN 21 mg/dL (7-18); BUN/Creat Ratio 19.3 RATIO (10-20); Calcium,Total 8.9 mg/dL (8.5-10.1); Chloride 104 mmol/L (98-107); Cholesterol 124 mg/dL (200); Creatinine, Serum 1.09 mg/dL (0.70-1.30); EST Glomerular Filtration Rate 72 mL/min (>60); Est Glom Filt Rate - Afr Amer 87 mL/min (>60); Globulin 3.5 g/dL (2.2-4.2); Glucose 140 mg/dL (74-106); High Density Lipoprotein 39 mg/dL; Potassium 4.4 mmol/L (3.5-5.1); Protein, Total 7.4 g/dL (6.4-8.2); Sodium Level 136 mmol/L (136-145); Triglycerides 109 mg/dL; Very Low Density Lipoprotein 22 mg/dL (5-40)
== END ==
PROVIDERS: PCP Family Medicine; Referring Provider Family Medicine; Visit Provider Family Medicine
DX: R10.9 Unspecified abdominal pain (principal); E78.5 Hyperlipidemia, unspecified
CPT/HCPCS: 36415; 76705; 80053; 80061; 85025

== ENCOUNTER → 2020-10-10 05:53 | Outpatient (CLI) | payer BC, SELFPAY ==
[2020-10-06 14:50] VITALS: BMI 31.5
--- NOTE | 2020-10-10 06:06 | ECHOCS_ITS ---
Reason For Study: CAD/ASHD Procedure This was a 2D Doppler, Color Flow transthoracic echocardiogram. The study was technically difficult. Contrast injection was performed. Exam performed in department. Left Ventricle Normal LV size. Left ventricular systolic function is normal. The estimated ejection fraction is 65 %. Stage 1 diastolic dysfunction. No regional wall motion abnormalities noted. Right Ventricle Normal RV size. Normal systolic function. Atria Normal left atrium. Normal right atrium. Mitral Valve Normal mitral valve. Trivial mitral valve insufficiency. Tricuspid Valve Normal tricuspid valve. Unable to estimate RV systolic pressure due to inadequate jet, pulmonary artery pressure probably normal. Aortic Valve Trisinus/trileaflet aortic valve. Mild focal aortic valve calcification. Pulmonic Valve Normal pulmonic valve. Great Vessels Normal aortic root. The pulmonary artery is normal size. Normal inferior vena cava. Pericardium/Pleural No pericardial effusion. Medication 22 gauge I.V. with prn adaptor inserted into right arm. Diluted definity 3ml given slow IV push to enhance endocardial definition. MMode/2D Measurements & Calculations LVIDd: 4.7 cm IVSd: 0.96 cm Ao root diam: 3.0 cm LVIDs: 3.0 cm LVPWd: 1.1 cm LA dimension: 3.8 cm FS: 36.5 % LAV(MOD-bp): 39.8 ml LVAd ap4: 33.9 cm2 SV(MOD-sp4): 71.3 ml LAV(MOD-bp) Indexed: 18.3 ml/m2 EDV(MOD-sp4): 114.6 ml LAV(MOD-sp2): 46.2 ml EDV(sp4-el): 119.1 ml LAV(MOD-sp4): 31.3 ml LVAs ap4: 18.5 cm2 ESV(MOD-sp4): 43.4 ml ESV(sp4-el): 43.6 ml EF(MOD-sp4): 62.2 % EF(sp4-el): 63.4 % SV(sp4-el): 75.5 ml LA A4 area: 13.3 cm2 RA A4 area: 12.8 cm2 Time Measurements MV dec time: 0.26 sec Doppler Measurements & Calculations MV E max gama: 82.3 cm/sec Lat Peak E' Gama: 8.6 cm/sec Med Peak E' Gama: 9.5 cm/sec MV A max gama: 85.7 cm/sec E/E' lat: 9.6 E/E' med: 8.7 MV E/A: 0.96 MV V2 max: 96.3 cm/sec MV P1/2t max gama: 94.4 cm/sec Ao V2 max: 131.4 cm/sec MV max P.7 mmHg MV P1/2t: 102.7 msec Ao max P.9 mmHg MV V2 mean: 58.5 cm/sec MV mean P.5 mmHg MV dec slope: 269.0 cm/sec2 MV V2 VTI: 38.6 cm MVA(P1/2t): 2.1 cm2 LV V1 max: 120.3 cm/sec PA V2 max: 123.3 cm/sec LV V1 max P.8 mmHg Interpretation Summary Normal LV size. Left ventricular systolic function is normal. The estimated ejection fraction is 65 %. Stage 1 diastolic dysfunction. Contrast injection was performed. Ordering Physician: Lee Andujar Referring Physician: Lee Parkinson Performed By: Ilir Arenas RCS
--- NOTE | 2020-10-10 10:03 | STRESSREP ---
Stress Test Report Pharmacologic myocardial perfusion stress test. 65-year-old man for preoperative evaluation. Medications: Aspirin, lisinopril, atorvastatin. Stress protocol: Resting EKG demonstrates sinus bradycardia with a rate of 55 bpm resting blood pressure is 122/84 mmHg. 0.4 mg of regadenoson was infused per usual protocol followed by rapid intravenous saline flush injection continuous EKG monitoring was performed. The maximum heart rate attained was 80 bpm which was 51% of maximum predicted heart rate the maximum workload was 1 metabolic equivalent. At rest there were no ST or T wave changes noted to suggest abnormal flow reserve at peak infusion nonspecific ST changes were noted with no meet the criteria for ischemia. The final blood pressure was 130/68 mmHg. Myocardial perfusion protocol. 14.2 mCi of technetium 99m sestamibi was injected at rest. 0.4 mg of regadenoson was infused per usual protocol. At peak infusion 44.6 mCi of technetium 99m sestamibi was injected stress images were obtained stress and rest images were reconstructed and compared in the short axis vertical long horizontal long axis. Gated images were also obtained Perfusion SPECT analysis: Review of the stress images demonstrate normal uptake of tracer noted in all areas of the myocardium the resting images similar demonstrate normal uptake of tracer noted in all areas of myocardium. No areas of reversibility are noted to suggest ischemia no previous infarct is noted. Gated SPECT analysis: The gated ejection fraction is 82%. Conclusion: Normal pharmacologic myocardial perfusion stress test. Preserved ejection fraction.
== END ==
PROVIDERS: PCP Family Medicine; Referring Provider Nurse Practitioner Family; Visit Provider Nurse Practitioner Family
DX: I25.119 Atherosclerotic heart disease of native coronary artery with unspecified angina pectoris (principal); Z95.5 Presence of coronary angioplasty implant and graft; I10 Essential (primary) hypertension; E78.5 Hyperlipidemia, unspecified
CPT/HCPCS: 78452; 93017; 93306; A9500; Q9957; A4216; C8929; J2785

== ENCOUNTER → 2021-01-20 08:23 | Outpatient (CLI) | payer BC, SELFPAY ==
[2020-10-06 14:50] VITALS: BMI 31.5
[2021-01-20 09:46] LABS: PSA,Total- Diagnostic 0.45 ng/mL (0.0-4.0)
== END ==
PROVIDERS: PCP Family Medicine; Referring Provider Urology; Visit Provider Urology
DX: C61 Malignant neoplasm of prostate (principal)
CPT/HCPCS: 36415; 84153

== ENCOUNTER 2021-07-30 09:32 | Outpatient (CLI) | payer MEDICARE, SELFPAY ==
[2021-07-30 11:21] LABS: PSA,Total - Annual Screen 0.59 ng/mL (0.00-4.00)
== END 2021-07-30 23:59 | disposition home or self-care (01) ==
LOC: LAB 09:37
PROVIDERS: PCP Family Medicine; Visit Provider Urology
DX: C61 Malignant neoplasm of prostate (principal)
CPT/HCPCS: 36415; 84153; G0103

== ENCOUNTER 2021-08-08 16:52 | Outpatient (CLI) | payer MEDICARE, SELFPAY | END 2021-08-08 23:59 | disposition short-term general hospital (02) | PROVIDERS: PCP Nurse Practitioner Family; Referring Provider Nurse Practitioner Family; Visit Provider Nurse Practitioner Family | DX: U07.1 COVID-19 (principal) | CPT/HCPCS: 87635; U0003; U0005 ==

== ENCOUNTER 2021-09-10 14:33 | Outpatient (CLI) | payer MEDICARE, SELFPAY ==
--- NOTE | 2021-09-10 14:41 | CT_ITS ---
STUDY: CT ABDOMEN AND PELVIS WITHOUT CONTRAST REASON FOR EXAM: Male, 66 years old. HEMATURIA RADIATION DOSAGE (If Supplied By Facility): CTDIvol = ( 16.88 ) mGy, DLP = ( 885.85 ) mGycm TECHNIQUE: Transaxial images were obtained from the dome of the diaphragm to the symphysis pubis without oral contrast, and without intravenous contrast. Sagittal and coronal images were reconstructed. Individualized dose optimization techniques were used for this CT. COMPARISON: Comparison is made with prior study dated 07/21/2020. FINDINGS: The visualized lung bases are unremarkable. Coronary artery calcification. There is decreased attenuation of the liver consistent with steatosis. There are surgical clips in the gallbladder fossa consistent with a prior cholecystectomy. Normal spleen. Normal pancreas. Normal bilateral adrenal glands. There is a 7.8 cm x 8.2 cm cyst in the lower pole of the right kidney. Mild linear calcification is seen along its medial aspect. There is also evidence of a 2.8 cm x 2.7 cm cyst in the posterior midportion of the right kidney. There is a 3.4 cm cyst in the anterior midportion of the left kidney. Normal visualized stomach. Normal small intestine. Normal colon. The appendix is visualized and appears normal. There is diffuse atherosclerotic calcification of the abdominal aorta and its major visceral branches, without a demonstrated aneurysm. Normal inferior vena cava. Normal retroperitoneum. Normal urinary bladder. Metallic radiation seeds are seen within the prostate. There is a right-sided inguinal hernia containing adipose tissue. There are degenerative changes of the visualized lumbar spine. CT/Abdomen/Pelvis without Cont IMPRESSION: Stable bilateral renal cysts. Status post cholecystectomy. No obstructive uropathy is seen at this time. Electronically Signed: Rdudy Burroughs MD at 15:23 EST ,
== END 2021-09-10 23:59 | disposition home or self-care (01) ==
LOC: CT 14:34
PROVIDERS: PCP Nurse Practitioner Family; Referring Provider Urology; Visit Provider Urology
DX: C61 Malignant neoplasm of prostate (principal); R31.0 Gross hematuria
CPT/HCPCS: 74176

== ENCOUNTER 2021-09-17 17:01 | Outpatient (CLI) | payer MEDICARE, SELFPAY ==
--- NOTE | 2021-09-17 14:30 | BLA_PTH ---
PATIENT: BASSEM EVANS LOC: [facility] U#:[id number] AGE/SX: 66/M ROOM: RE09/17/[address]: Dr. 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 See comment. AM:ben 09/19/2021 COMMENT There is no evidence of vascular or lamina propria invasion. Detrusor muscle is not present in biopsy. Clinical correlation is suggested. MICROSCOPIC DESCRIPTION Slides are reviewed. GROSS DESCRIPTION Received in fixative is one container labeled with the patient's name and designated bladder biopsy. The specimen consists of multiple irregular fragments of light delgado soft tissue that in aggregate measure 0.3 x 0.1 x 0.1 cm. The specimen is totally submitted in one cassette. / SJ:ben 09/18/2021 TC:0 CPT: 20938
== END 2021-09-17 23:59 | disposition home or self-care (01) ==
PROVIDERS: PCP Nurse Practitioner Family; Referring Provider Urology; Visit Provider Urology
DX: D30.3 Benign neoplasm of bladder (principal)
CPT/HCPCS: 88305

== ENCOUNTER → 2022-01-21 | Outpatient (CLI) | payer MEDICARE, SELFPAY ==
[2022-01-21 18:35] LABS: PSA,Total- Diagnostic 0.54 ng/mL (0.0-4.0)
== END | disposition home or self-care (01) ==
LOC: LAB 16:25
PROVIDERS: PCP Nurse Practitioner Family; Visit Provider Urology
DX: C61 Malignant neoplasm of prostate (principal)
CPT/HCPCS: 36415; 84153

== ENCOUNTER → 2022-10-26 | Outpatient (CLI) | payer MEDICARE, SELFPAY ==
[2022-10-26 10:12] LABS: AST(SGOT) 38 U/L (15-37); Alanine Aminotransfer ALT/SGPT 70 U/L (16-61); Albumin, Serum 3.6 g/dL (3.2-5.0); Alkaline Phosphatase 50 U/L (45-117); Bilirubin, Direct 0.25 mg/dL (0.00-0.30); Cholesterol 125 mg/dL (200); Globulin 3.7 g/dL (2.2-4.2); High Density Lipoprotein 38 mg/dL; Protein, Total 7.3 g/dL (6.4-8.2); Triglycerides 112 mg/dL; Very Low Density Lipoprotein 22 mg/dL (5-40)
[2022-10-26 10:14] LABS: PSA,Total- Diagnostic 0.61 ng/mL (0.0-4.0)
== END | disposition home or self-care (01) ==
LOC: LAB 09:07
PROVIDERS: Nurse Practitioner Family; PCP Nurse Practitioner Family; Referring Provider Urology; Visit Provider Urology
DX: C61 Malignant neoplasm of prostate (principal); E78.5 Hyperlipidemia, unspecified
CPT/HCPCS: 36415; 80061; 80076; 84153

== ENCOUNTER 2022-11-20 05:58 | Day surgery (SDC) | payer MEDICARE, SELFPAY ==
--- NOTE | 2022-11-13 14:10 | EKG12_ITS ---
Test Reason : PRE-OP Blood Pressure : / mmHG Vent. Rate : 054 BPM Atrial Rate : 054 BPM P-R Int : 166 ms QRS Dur : 074 ms QT Int : 402 ms P-R-T Axes : 034 019 022 degrees QTc Int : 381 ms Sinus bradycardia with sinus arrhythmia Otherwise normal ECG Confirmed by LUIS MAHAN, PAUL ([id number]), film editor supervisor SHANEKA CASTAÑEDA ([id number]) on 11/14/2022 7:43:47 AM Referred By: NARA Confirmed By:PAUL SMITH MD
[2022-11-13 14:51] LABS: Hematocrit 48.6 % (40-54); Mean Corp Hgb Conc 32.9 g/dL (32-36); Mean Corpuscular Hgb 29.9 pg (27.0-32.0); Mean Corpuscular Volume 90.7 fL (80-94); Platelet Count 217 K/mm3 (150-450); RBC Distribution Width CV 13.7 % (11.6-14.6); RBC Distribution Width SD 45.1 fl (35.1-43.9); Red Blood Count 5.36 M/mm3 (4.6-6.2); White Blood Count 7.2 K/mm3 (4.4-11.0)
[2022-11-13 15:24] LABS: Anion Gap 2 (5-15); BUN 18 mg/dL (7-18); BUN/Creat Ratio 15.4 RATIO (10-20); Calcium,Total 9.6 mg/dL (8.5-10.1); Chloride 106 mmol/L (98-107); Creatinine, Serum 1.17 mg/dL (0.70-1.30); EST Glomerular Filtration Rate 66 mL/min (>60); Est Glom Filt Rate - Afr Amer 80 mL/min (>60); Glucose 102 mg/dL (74-106); Potassium 4.5 mmol/L (3.5-5.1); Sodium Level 138 mmol/L (136-145)
[2022-11-20 06:27] VITALS: BP 165/66; PULSE 45; RESP 16; TEMP 36.7; O2SAT 97; BMI 32.2
[2022-11-20] MEDS: Lactated Ringers 1,000 ML 15 ML IV (06:33)
--- NOTE | 2022-11-20 07:30 | BLA_PTH ---
PATIENT: BASSEM EVANS LOC: [facility] [place] U#:[id number] AGE/SX: 67/M ROOM: RE11/20/[address]: Dr. Rohit Estrada MD : 1955 BED: DIS: 11/20/2022 SPEC #: [id number] RECD: 11/20/22 11:19 STATUS: ZORAN NAHEED #: [id number] JANNETH: 11/20/22 07:[address]: Rohit Estrada DEPT: SURGICAL PATHOLOGY RECD BY: Gaye Potter ENTERED: 11/20/22 12:27 SP TYPE: BLADDER BX OTHR DR: Marline Franz, THERMOCOUPLE TESTER-C Tissues: Urinary bladder, NOS Procedures: Surgery Specimen Level IV HEADER OPERATION: Cysto, transurethral resection bladder, Olympus PRE-OP DIAGNOSIS: Bladder tumor TISSUE SUBMITTED: Bladder tumor left posterior wall MICROSCOPIC DIAGNOSIS Urinary bladder tumor, left posterior wall, biopsy: Tissue with marked cautery artifact. No evidence of malignancy. See comment. AM:ben 11/21/2022 COMMENT Clinical correlation is suggested. MICROSCOPIC DESCRIPTION Slides are reviewed. GROSS DESCRIPTION Received in fixative is one container labeled with the patient's name and designated bladder tumor left posterior wall. The specimen consists of one minute fragment of light delgado soft tissue that measures <0.1 x <0.1 x <0.1 cm. The specimen is totally submitted in one cassette. / AM:ben 11/20/2022 TC:5 CPT: 89008
[2022-11-20] MEDS: Cefazolin 2 GM in 0.9% Normal Saline 100 ML IV (07:32)
--- NOTE | 2022-11-20 08:29 | HP.PCM_ITS ---
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 Cancer Cardiology follow-up encounter Coronary artery disease Essential (primary) hypertension Former smoker High cholesterol History of echocardiogram History of non-ST elevation myocardial infarction (NSTEMI) (12/15/09) History of radiation therapy History of stress test HLD (hyperlipidemia) Loose, teeth Prostate cancer Wears contact lenses Wears glasses Home Medications brimonidine 0.2 %-timolol 0.5 % eye drops 1 drp EACH EYE DAILY 04/29/17 [History Last Taken 11/18/22] aspirin 81 mg tablet,delayed release (Adult Aspirin Regimen) 81 mg PO DAILY 10/11/21 [History Last Taken 11/12/22] rosuvastatin 5 mg tablet (Crestor) 5 mg PO .mwf #60 tabs 12/04/21 [Rx Last Taken 11/18/22] losartan 100 mg tablet 100 mg PO DAILY #90 tabs 10/08/22 [Rx Last Taken 11/18/22] ciprofloxacin HCl 500 mg tablet (Cipro) 500 mg PO BID #10 tabs 11/20/22 [Rx Last Taken Unknown] Allergy/AdvReac Type Severity Reaction Status Date / Time atorvastatin AdvReac myalgias Verified 11/20/22 06:26 anxiety med Allergy Unknown Uncoded 11/20/22 06:26 Family History (Reviewed 10/08/22 @ 15:48 by Lee Andujar PARACHUTE CUSHION INSTALLER, PARACHUTE CUSHION INSTALLER-C) Brother CAD (coronary artery disease) Surgical History (Updated 11/13/22 @ 10:43 by [place] Centeno) History of cardiac catheterization History of cataract surgery History of colonoscopy History of coronary artery stent placement (12/15/09) History of vasectomy Social History (Reviewed 10/08/22 @ 15:48 by Lee Andujar PARACHUTE CUSHION INSTALLER, PARACHUTE CUSHION INSTALLER-C) Smoking Status: Former smoker Vital Signs Vital Signs Vital Signs: 11/20/22 06:27 11/20/22 06:27 Temperature 98.0 F Temperature Source Temporal Pulse Rate 45 L Respiratory Rate 16 Respiratory Pattern Normal Blood Pressure 165/66 H Blood Pressure Mean 99 Blood Pressure Source Monitor Blood Pressure Position Semi-Fowlers Blood Pressure Location Right Arm Pulse Ox 97 Oxygen Delivery Method Room Air Weight Weight: 102 kg Body Mass Index (BMI) 32.2 Results Lab / Micro Data Result Diagrams: 11/13/22 14:27 11/13/22 14:27
--- NOTE | 2022-11-20 08:29 | PCM.DC ---
Discharge Instructions Diet Discharge Diet: No restrictions Dressing / Incision Call your doctor if your incision/area has: Continuous Slow Oozing, Increased Pain/ Swelling, Increased Redness and Foul Smelling Discharge Call your doctor if you observe: Fever of 101 or Higher, Numbness or Tingling, Shortness of breath, Dizziness, Calf discomfort and Uncontrolled pain Follow Up Care Please Follow Up With: Rohit Estrada MD Test Results: Test results from this visit will be discussed in further detail at your follow-up appointment, if applicable. Discharge Plan Admission Primary Reason for Your Visit: Resection of bladder tumor Attending Provider: Rohit Estrada Primary Care Provider: Marline Franz NP Discharge Orders/Prescriptions Prescriptions: New ciprofloxacin HCl [Cipro] 500 mg tablet 500 mg PO BID Qty: 10 0RF Continued aspirin [Adult Aspirin Regimen] 81 mg tablet,delayed release (DR/EC) 81 mg PO DAILY losartan 100 mg tablet 100 mg PO DAILY Qty: 90 3RF brimonidine-timolol 1 DROP bottle 1 drp EACH EYE DAILY rosuvastatin [Crestor] 5 mg tablet 5 mg PO .mwf Qty: 60 3RF Other Ambulatory Orders: 12 Lead EKG (Routine) Timeframe: 20221113 Location: None Selected Ordered By: Dr. Augusto Wood Referrals / Follow Up: Rohit Estrada MD [Med Staff - Active Staff] - Marline Franz NP, PAIN MANAGEMENT SPECIALIST-C [Primary Care Provider] - Disposition Disposition (needs filled in before D/C Order can be placed): Home, Self Care
--- NOTE | 2022-11-20 08:29 | PCM.OPRPT ---
Report of Operation Date of Procedure: 11/20/22 Pre-Operative Diagnosis: Bladder tumor, 4-1/2 cm x 2 cm x 1 cm in size Post-Operative Diagnosis: The same Description of Surgical Findings:: Patient presented to the hospital for treatment of a tumor that was found in the bladder with a bladder tumor. Patient understands is possible it may not be able to resect the entire tumor. Patient also understands is possible that the patient may need multiple procedures or more invasive procedures to cure him of this cancer. Patient was taken back to the operating room after smooth induction of anesthesia the patient was placed supine on the table. The patient was placed in dorsolithotomy position. The urethra and genitals prepped and draped in usual sterile fashion. I went into the bladder with a 30 degree lens and a cystoscope was performed and identified the tumor in the bladder on posterior lateral wall, size listed above.. I then switched over to the 70 degree lens and inspected the rest of the bladder with a 70 degree lens to make sure there is no other tumors in the bladder and to identify all the tumor locations. The right and left ureteral orifice were identified. The tumor was not involved ureteral orifices. I then placed the Olympus bipolar resectoscope with a large loop into the bladder. I then started resected the tumor and started superficially shaving small little pieces working my way to the base of the tumor. As I went along I then cauterize any bleeders that were encountered during the resection. The tumor pieces were then flushed out of the bladder and continued resecting the tumor until finally I got down to the base of the tumor and the muscle of the bladder was then identified a small little bit of muscle was taken with the resection. The Ellik was used then to evacuate all the tumor pieces out of the bladder. I then cauterized extensively the tumor base and also circumferentially around where the tumor was. Again we made sure to evacuate all the pieces out the bladder. I made sure there was no more bleeding from the base of the bladder and then over the tumor pieces were then evacuated out and sent off as a specimen. After the resection of the entire tumor was completed. We then placed the catheter in the bladder and the patient was taken back to the PACU in stable condition. Surgeon: Rohit Estrada Type of Anesthesia: General Drains: none Estimated Blood Loss (mL): 0 Complications none Admit VTE Documentation VTE Present on Admission: No VTE Mechan Device Prophylaxis: SCD's VTE Pharm Prophylaxis ordered?: No
[2022-11-20 08:39] VITALS: BP 147/71; BP 165/66; PULSE 52; RESP 16; TEMP 36.9; O2SAT 98
[2022-11-20 08:45] VITALS: BP 144/69; BP 165/66; PULSE 51; RESP 16; O2SAT 97
[2022-11-20 09:00] VITALS: BP 161/70; BP 165/66; PULSE 50; RESP 16; O2SAT 97
[2022-11-20 09:10] VITALS: BP 163/73; BP 165/66; PULSE 47; RESP 16; TEMP 36.1; O2SAT 98
[2022-11-20 09:35] VITALS: BP 165/66
== END 2022-11-20 09:39 | disposition home or self-care (01) ==
LOC: SDC 05:59 → AC 05:59
PROVIDERS: Anesthesiology; PCP Nurse Practitioner Family; Referring Provider Urology; Visit Provider Urology
PROC: 0TBB8ZZ Excision of Bladder, Via Natural or Artificial Opening Endoscopic (ICD-10-PCS; CPT 52240; principal; 2022-11-20 07:20)
DX: C67.9 Malignant neoplasm of bladder, unspecified (principal); E78.5 Hyperlipidemia, unspecified; Z87.891 Personal history of nicotine dependence; I10 Essential (primary) hypertension; Z79.82 Long term (current) use of aspirin; I25.10 Atherosclerotic heart disease of native coronary artery without angina pectoris; I25.2 Old myocardial infarction; Z85.46 Personal history of malignant neoplasm of prostate
CPT/HCPCS: 52240; 00912; 36415; 80048; 85027; 88305; 93005; J7120; J2405

== ENCOUNTER → 2024-03-17 | Outpatient (CLI) | payer MEDICARE, SELFPAY ==
--- NOTE | 2024-03-17 12:33 | RAD_ITS ---
STUDY: X-RAY - SACRUM/COCCYX REASON FOR EXAM: Male, 69 years old. Back injury. Pain. TECHNIQUE: 3 view(s) of the sacrum and coccyx were obtained. COMPARISON: None. FINDINGS: Osteopenia. Moderate lower lumbosacral spondylosis. Mild arthrosis of both sacroiliac joints. Mild arthrosis of the symphysis pubis. Moderate arthrosis of both hips. Postsurgical changes projected over the symphysis pubis and vascular calcification. RAD/Sacrum-Coccyx min 2 Views IMPRESSION: Osteopenia with osteoarthritic changes. No acute abnormality. Electronically Signed: John Payton MD at 12:51 EDT ,
--- NOTE | 2024-03-17 12:33 | RAD_ITS ---
STUDY: X-RAY - LUMBAR SPINE REASON FOR EXAM: Male, 69 years old. Back injury. Pain. TECHNIQUE: 2 view(s) of the lumbar spine were obtained. COMPARISON: None FINDINGS: Osteopenia. Normal lordosis. Mild dextroscoliosis. Normal vertebral alignment. Diffuse moderate lower thoracic and lumbosacral set sclerosis. Mild endplate concavities which may represent osteoporosis. Diffuse intervertebral disc space narrowing and small osteophytes most marked in the lower thoracic spine and at L2-3 and L3-4. Moderate arthrosis of both hips. Phleboliths and postsurgical changes at the symphysis pubis. RAD/Lumbar Spine 2 or 3 Views IMPRESSION: Osteopenia with diffuse mild lower thoracic and lumbosacral spondylosis. Electronically Signed: John Payton MD at 12:49 EDT ,
== END | disposition home or self-care (01) ==
LOC: MTRAD 12:33
PROVIDERS: PCP Nurse Practitioner Family; Referring Provider Family Medicine; Visit Provider Family Medicine
DX: S39.92XA Unspecified injury of lower back, initial encounter (principal)
CPT/HCPCS: 72100; 72220

== ENCOUNTER → 2024-04-29 | Outpatient (CLI) | payer MEDICARE, SELFPAY ==
[2024-04-29 15:21] LABS: AST(SGOT) 29 U/L (15-37); Alanine Aminotransfer ALT/SGPT 53 U/L (16-61); Albumin, Serum 3.8 g/dL (3.2-5.0); Alkaline Phosphatase 56 U/L (45-117); Bilirubin, Direct 0.34 mg/dL (0.00-0.30); Cholesterol 149 mg/dL (200); Globulin 3.4 g/dL (2.2-4.2); High Density Lipoprotein 42 mg/dL; Protein, Total 7.2 g/dL (6.4-8.2); Triglycerides 138 mg/dL; Very Low Density Lipoprotein 28 mg/dL (5-40)
== END | disposition home or self-care (01) ==
LOC: MFPLAB 11:54
PROVIDERS: PCP Nurse Practitioner Family; Referring Provider Nurse Practitioner Family; Visit Provider Nurse Practitioner Family
DX: E78.00 Pure hypercholesterolemia, unspecified (principal)
CPT/HCPCS: 36415; 80061; 80076

== ENCOUNTER → 2024-12-18 | Outpatient (CLI) | payer MEDICARE, SELFPAY ==
[2024-12-18 11:04] LABS: AST(SGOT) 21 U/L (<=37); Alanine Aminotransfer ALT/SGPT 22 U/L (<=46); Albumin, Serum 4.3 g/dL (3.4-4.8); Alkaline Phosphatase 54 U/L (40-129); Bilirubin, Direct 0.32 mg/dL (0.00-0.30); Globulin 2.9 g/dL (2.2-4.2); Protein, Total 7.1 g/dL (5.9-8.4); Total Bilirubin 0.82 mg/dL (0.00-1.30)
[2024-12-18 11:17] LABS: Cholesterol 132 mg/dL (<=200); High Density Lipoprotein 39 mg/dL; Low Density Lipoprotein Calc. 76 mg/dL; Triglycerides 88 mg/dL; Very Low Density Lipoprotein 18 mg/dL (5-40); cholesterol:hdl ratio screen 3.39
== END | disposition home or self-care (01) ==
LOC: LAB 10:09
PROVIDERS: Nurse Practitioner Gerontology; PCP Family Medicine; Referring Provider Physician Assistant Medical; Visit Provider Physician Assistant Medical
DX: E78.5 Hyperlipidemia, unspecified (principal)
CPT/HCPCS: 36415; 80061; 80076

== ENCOUNTER → 2025-05-09 | Outpatient (CLI) | payer MEDICARE, SELFPAY ==
[2025-05-09 18:27] LABS: PSA,Total- Diagnostic 0.41 ng/mL (0.00-4.00)
== END | disposition home or self-care (01) ==
LOC: LAB 16:17
PROVIDERS: PCP Family Medicine; Referring Provider Urology; Visit Provider Urology
DX: C61 Malignant neoplasm of prostate (principal)
CPT/HCPCS: 36415; 84153